=== PATIENT | male | born 1975 | race Caucasian/White ===

== ENCOUNTER → 2017-10-05 | Outpatient (CLI) | payer BC ==
[2017-10-05 12:02] LABS: Basophils # (A) 0.1 k/uL (0-0.2); Basophils % (A) 1 %; Eosinophils # (A) 0.1 k/uL (0-0.7); Eosinophils % (A) 4 %; HCT 43.8 % (39.0-53.0); HGB 14.6 gm/dL (13.0-17.5); Lymphocytes % (A) 27 %; MCH 30.8 pg (25.0-35.0); MCHC 33.3 g/dL (31.0-37.0); MCV 92.5 fL (80.0-100.0); Mean Platelet Volume 7.2; Monocytes # (A) 0.4 k/uL (0-1.0); Monocytes % (A) 9 %; Neutrophils # (A) 2.2 k/uL (1.3-7.7); Neutrophils % (A) 57 %; Platelet Count 212 k/uL (150-450); RBC 4.73 m/uL (4.30-5.90); RDW 12.7 % (11.5-15.5); WBC 3.8 k/uL (3.8-10.6)
[2017-10-05 12:11] LABS: ALT 39 U/L (21-72); AST 31 U/L (17-59); Albumin 4.9 g/dL (3.5-5.0); Alkaline Phosphatase 48 U/L (38-126); Anion Gap 10 mmol/L; Blood Urea Nitrogen 16 mg/dL (9-20); Calcium 9.5 mg/dL (8.4-10.2); Carbon Dioxide 28 mmol/L (22-30); Chloride 103 mmol/L (98-107); Cholesterol 167 mg/dL (<200); Glucose 110 mg/dL (74-99); HDL Cholesterol 78 mg/dL (40-60); LDL Cholesterol,Calculated 79 mg/dL (0-99); Potassium 4.5 mmol/L (3.5-5.1); Sodium 141 mmol/L (137-145); Total Bilirubin 0.8 mg/dL (0.2-1.3); Total Protein 7.7 g/dL (6.3-8.2); Triglycerides 51 mg/dL (<150)
[2017-10-05 12:28] LABS: T4, Free (Free Thyroxine) 0.85 ng/dL (0.78-2.19)
== END | disposition home or self-care (01) ==
LOC: LABWHC1 11:21
PROVIDERS: ATTEND Internal Medicine
DX: I10 Essential (primary) hypertension (principal); E78.5 Hyperlipidemia, unspecified; J45.909 Unspecified asthma, uncomplicated; K21.9 Gastro-esophageal reflux disease without esophagitis
CPT/HCPCS: 36415; 80053; 80061; 84439; 84443; 84481; 85025

== ENCOUNTER → 2023-04-06 | Outpatient (CLI) | payer BC ==
--- NOTE | 2023-04-07 06:40 | MR ---
EXAMINATION TYPE: MR knee RT wo con DATE OF EXAM: 04/06/2023 COMPARISON: Outside right knee x-ray April 04, 2023 HISTORY: Right knee pain x1 month TECHNIQUE: Multiplanar, multisequence images of the knee is performed without IV contrast. FINDINGS: MEDIAL MENISCUS: Anterior and posterior horns are intact without tear. LATERAL MENISCUS: Anterior and posterior horns are intact without tear. CRUCIATE LIGAMENTS: The anterior and posterior cruciate ligaments are intact and unremarkable. COLLATERAL LIGAMENTS: The medial collateral ligament and lateral collateral ligament complex are inta ct. Increased fluid signal surrounds the medial collateral ligament. EXTENSOR MECHANISM: Visualized quadriceps and patellar tendons are intact. EFFUSION: Moderate to large sized suprapatellar joint effusion. POPLITEAL CYST: No popliteal/dixon cyst. TRICOMPARTMENT SPACES: Tricompartment joint space are fairly well preserved. No significant spurring is seen. CARTILAGE: Tricompartmental articular cartilage is maintained. BONE MARROW SIGNAL: No focal abnormal marrow signal is appreciated. OTHER: No additional significant abnormality is appreciated. IMPRESSION: \ 1. Moderate MCL sprain injury. 2. No meniscal or ligamentous tear is seen. 3. Moderate to large-sized suprapatellar joint effusion noted.
== END | disposition home or self-care (01) ==
LOC: RADMRIMAIN 18:08
PROVIDERS: ATTEND Orthopaedic Surgery
DX: S83.411A Sprain of medial collateral ligament of right knee, initial encounter (principal); M25.461 Effusion, right knee

== ENCOUNTER → 2023-05-30 | Outpatient (CLI) | payer BC ==
[2023-05-30 18:56] LABS: ALT 30 U/L (10-49); AST 31 U/L (14-35); Albumin 5.1 g/dL (3.8-4.9); Albumin/Globulin Ratio 1.65 Ratio (1.60-3.17); Alkaline Phosphatase 60 U/L (41-126); BUN/Creat Ratio 20.56 Ratio (12.00-20.00); Blood Urea Nitrogen 18.5 mg/dL (9.0-27.0); C Reactive Protein, High Sens 0.842 mg/L (0.000-3.000); Calcium 9.9 mg/dL (8.7-10.3); Carbon Dioxide 24.9 mmol/L (21.6-31.8); Chloride 102 mmol/L (96-109); Chol/HDL Ratio 2.31 Ratio; Globulin 3.1 g/dL (1.6-3.3); Glucose 95 mg/dL (70-110); LDL Cholesterol,Calculated 89.2 mg/dL (0.0-131.0); Potassium 4.5 mmol/L (3.5-5.5); Sodium 139 mmol/L (135-145); Total Bilirubin 0.6 mg/dL (0.3-1.2); Total Protein 8.2 g/dL (6.2-8.2); Uric Acid 4.4 mg/dL (3.7-8.7); VLDL Calculation 9.44 mg/dL (5.00-40.00)
== END | disposition home or self-care (01) ==
LOC: LABWHC1 12:13
DX: I11.9 Hypertensive heart disease without heart failure (principal); I65.23 Occlusion and stenosis of bilateral carotid arteries; I70.203 Unspecified atherosclerosis of native arteries of extremities, bilateral legs; E78.00 Pure hypercholesterolemia, unspecified
CPT/HCPCS: 36415; 80053; 80061; 82040; 82306; 82378; 83516; 83695; 84270; 84403; 84550; 86141

== ENCOUNTER → 2024-07-01 | Outpatient (CLI) | payer BC ==
--- NOTE | 2024-07-01 08:35 | CT ---
EXAMINATION TYPE: CT abdomen wo con DATE OF EXAM: 07/01/2024 COMPARISON: NONE CLINICAL INDICATION: Male, 49 years old with history of R97.8, ELEVATED CA 19-9, PANCREAS NOT VISIBLE ON US, TECHNIQUE: CT scan of the abdomen is performed without IV contrast. (none if empty) Oral contrast used: with Oral Contrast (none if empty) CT DLP: 297.60 mGycm, Automated exposure control for dose reduction was used. FINDINGS: Within the limitations of noncontrast study, the following observations are made. LUNG BASES: No significant abnormality is appreciated. LIVER/GB: No significant abnormality is appreciated. PANCREAS: Pancreas is normal in size. No obvious solid or cystic mass. No glandular calcifications or ductal dilatation is seen SPLEEN: No significant abnormality is seen. ADRENALS: No significant abnormality is seen. KIDNEYS: No renal stone or hydronephrosis is seen bilaterally. BOWEL: Oral contrast only reaches jejunal loops in the left abdomen. No abnormal small or large bowel dilatation is seen. Moderate fecal prominence in the right colon. Normal-appearing appendix from the cecum. LYMPH NODES: No greater than 1cm abdominal lymph nodes are appreciated. OSSEOUS STRUCTURES: No significant abnormality is seen. OTHER: No significant additional abnormality is seen. IMPRESSION: Suboptimal study without IV contrast administered or pancreatic protocol but no obvious c oncerning focal pancreatic mass or ductal dilatation is present. [facility], , 07/01/2024 8:33 AM
== END | disposition home or self-care (01) ==
LOC: RADCTMAIN 07:34
DX: R97.8 Other abnormal tumor markers (principal)
CPT/HCPCS: 74150

== ENCOUNTER → 2024-07-18 | Outpatient (CLI) | payer SELFPAY ==
--- NOTE | 2024-07-18 10:47 | CT ---
EXAMINATION TYPE: CT abdomen w con CT DLP: 460 mGycm, Automated exposure control for dose reduction was used. DATE OF EXAM: 07/18/2024 10:30 AM COMPARISON: CT abdomen 07/01/2024 CLINICAL INDICATION:Male, 49 years old with history of K59.00 CONSTIPATION, UNSPECIFIED; Patient's pa ncreas was not visible during abdominal ultrasound and patient has elevated CA 19-9. TECHNIQUE: Standard CT of the abdomen after the uneventful administration of 100 mL Isovue 300 intr avenously. Oral contrast administered. Coronal and sagittal reformats were performed. FINDINGS: LOWER CHEST: Minimal posterior dependent subsegmental atelectasis is noted. ABDOMEN LIVER: No focal lesion. Mildly enlarged measuring 19.9 cm in CC dimension. GALLBLADDER AND BILE DUCTS: Unremarkable. PANCREAS: Unremarkable. No ductal dilatation. No distinct lesion. The pancreas enhances homogeneously . No surrounding inflammatory changes and microcalcifications. SPLEEN: Unremarkable. ADRENAL GLANDS: Unremarkable. KIDNEYS AND URETERS: No evidence of hydronephrosis or renal calculus. The kidneys enhance symmetrical ly. Contrast is demonstrated within both collecting systems and proximal ureters on the delayed phase . STOMACH AND BOWEL: Stomach and duodenum are unremarkable. Enteric contrast reaches the visualized mid bowel. No visualized focal bowel wall thickening or surrounding inflammatory changes. No evidence of bowel obstruction. PERITONEUM: No evidence of pneumoperitoneum or free fluid. VASCULATURE: No evidence of aortic aneurysm. MUSCULOSKELETAL: No acute osseous abnormalities. No aggressive osseous lesion. LYMPH NODES: No evidence for lymphadenopathy. SOFT TISSUE/ABDOMINAL WALL: Unremarkable IMPRESSION: 1. No acute abdominal process. No suspicious pancreatic lesion. 2. Mild hepatomegaly. [facility], , 07/18/2024 10:45 AM
== END | disposition home or self-care (01) ==
LOC: RADCTMAIN 09:18
PROVIDERS: ATTEND Internal Medicine Cardiovascular Disease
DX: R16.0 Hepatomegaly, not elsewhere classified (principal); K59.00 Constipation, unspecified
CPT/HCPCS: 74160; Q9967